=== PATIENT | male | born 1960 | race Asian ===

== ENCOUNTER 2017-03-11 07:10 | Day surgery (SDC) | payer MEDICAID ==
[~2017-03-11] VITALS: Ht 177.8 cm; Wt 94.3 kg
[~2017-03-11 07:10] MED LIST: COU5T PO; FOLI0.8T19 PO; FOLI1TAB16 PO; FURO40TA4 PO; GUAI10SY2 PO; METO5TAB85 PO; PANT40TA4 PO
[2017-03-11 07:28] VITALS: BP 112/63
[2017-03-11] MEDS ORDERED: albumin (human) 25% 100 ML IV solution IV PRN (07:40)
[2017-03-11] MEDS ORDERED: normal saline 1000ml 1,000 ML IV PRN (07:40)
[2017-03-11 08:40] VITALS: BP 101/65
[2017-03-11 08:45] VITALS: BP 103/60
[2017-03-11 09:01] VITALS: BP 100/60
== END 2017-03-11 09:17 | disposition home or self-care (01) ==
LOC: SSTAY O 07:10
PROVIDERS: ATTEND Radiology Diagnostic Radiology
DX: R18.8 Other ascites (principal); K76.89 Other specified diseases of liver; Z98.890 Other specified postprocedural states; Z88.6 Allergy status to analgesic agent; Z88.8 Allergy status to other drugs, medicaments and biological substances; Z91.018 Allergy to other foods; N18.6 End stage renal disease; Z99.2 Dependence on renal dialysis; Z95.2 Presence of prosthetic heart valve
CPT/HCPCS: 49083; A6257; J7030

== ENCOUNTER 2017-03-25 06:51 | Day surgery (SDC) | payer MEDICAID ==
[~2017-03-25] VITALS: Ht 177.8 cm; Wt 92.2 kg
[2017-03-25 07:15] VITALS: BP 115/64
[2017-03-25] MEDS ORDERED: albumin (human) 25% 100 ML IV solution IV PRN (07:15)
[2017-03-25] MEDS ORDERED: normal saline 1000ml 1,000 ML IV PRN (07:15)
[2017-03-25] MEDS ORDERED: LIDOcaine 1% 30ml vial SQ STA (07:34)
[2017-03-25 08:37] VITALS: BP 109/56
[2017-03-25 08:45] VITALS: BP 101/70
[2017-03-25 09:00] VITALS: BP 93/65
[2017-03-25 09:15] VITALS: BP 93/108
[2017-03-25 09:30] VITALS: BP 106/59
== END 2017-03-25 09:57 | disposition home or self-care (01) ==
LOC: SSTAY O 06:51
PROVIDERS: ATTEND Radiology Diagnostic Radiology
DX: R18.8 Other ascites (principal)
CPT/HCPCS: 49083; A6257; J3490; J7030

== ENCOUNTER 2017-04-07 06:58 | Day surgery (SDC) | payer MEDICAID ==
[~2017-04-07] VITALS: Ht 177.8 cm; Wt 96.6 kg
[2017-04-07 07:21] VITALS: BP 104/74
[2017-04-07] MEDS ORDERED: albumin (human) 25% 100 ML IV solution IV PRN (07:50)
[2017-04-07 08:19] VITALS: BP 111/77
[2017-04-07 08:30] VITALS: BP 119/64
[2017-04-07 08:45] VITALS: BP 129/69
[2017-04-07 09:00] VITALS: BP 120/65
== END 2017-04-07 09:15 | disposition home or self-care (01) ==
LOC: SSTAY O 06:58
PROVIDERS: ATTEND Radiology Vascular & Interventional Radiology
DX: R18.8 Other ascites (principal); Z86.718 Personal history of other venous thrombosis and embolism; I48.91 Unspecified atrial fibrillation; Z79.01 Long term (current) use of anticoagulants; N18.6 End stage renal disease; Z99.2 Dependence on renal dialysis; Z95.2 Presence of prosthetic heart valve; Z86.711 Personal history of pulmonary embolism; Z88.6 Allergy status to analgesic agent; Z91.018 Allergy to other foods
CPT/HCPCS: 49083; A6257

== ENCOUNTER 2017-04-23 07:11 | Day surgery (SDC) | payer MEDICAID ==
[2017-04-23] VITALS (10 sets, daily range): BP systolic 96–113; BP diastolic 52–71
[2017-04-23] MEDS ORDERED: albumin (human) 25% 100 ML IV solution IV PRN (07:25)
== END 2017-04-23 10:15 | disposition home or self-care (01) ==
LOC: SSTAY O 07:11
PROVIDERS: ATTEND Radiology Vascular & Interventional Radiology
DX: R18.8 Other ascites (principal); I48.91 Unspecified atrial fibrillation; N18.6 End stage renal disease; I50.9 Heart failure, unspecified; J44.9 Chronic obstructive pulmonary disease, unspecified; F32.9 Major depressive disorder, single episode, unspecified; M19.90 Unspecified osteoarthritis, unspecified site; Z79.01 Long term (current) use of anticoagulants; Z86.718 Personal history of other venous thrombosis and embolism; Z95.2 Presence of prosthetic heart valve; Z99.2 Dependence on renal dialysis; Z88.6 Allergy status to analgesic agent; Z88.8 Allergy status to other drugs, medicaments and biological substances; Z91.018 Allergy to other foods; Z86.73 Personal history of transient ischemic attack (TIA), and cerebral infarction without residual deficits; Z90.5 Acquired absence of kidney; Z86.74 Personal history of sudden cardiac arrest; Z79.899 Other long term (current) drug therapy
CPT/HCPCS: 49083; A6257; P9047

== ENCOUNTER 2017-05-12 06:20 | Day surgery (SDC) | payer MEDICAID ==
[~2017-05-12] VITALS: Ht 177.8 cm; Wt 98.2 kg
[2017-05-12] MEDS ORDERED: albumin (human) 25% 100 ML IV solution IV PRN (06:35)
[2017-05-12 06:40] VITALS: BP 103/64
[2017-05-12 08:13] VITALS: BP 121/77
[2017-05-12 08:14] VITALS: BP 121/77
[2017-05-12 08:30] VITALS: BP 108/67
[2017-05-12 08:45] VITALS: BP 107/66
[2017-05-12 09:00] VITALS: BP 110/64
== END 2017-05-12 09:05 | disposition home or self-care (01) ==
LOC: SSTAY O 06:20
PROVIDERS: ATTEND Radiology Diagnostic Radiology
DX: R18.8 Other ascites (principal); I48.91 Unspecified atrial fibrillation; N18.6 End stage renal disease; G47.33 Obstructive sleep apnea (adult) (pediatric); M19.90 Unspecified osteoarthritis, unspecified site; F32.9 Major depressive disorder, single episode, unspecified; B19.20 Unspecified viral hepatitis C without hepatic coma; Z72.89 Other problems related to lifestyle; Z87.11 Personal history of peptic ulcer disease; Z90.49 Acquired absence of other specified parts of digestive tract; Z90.5 Acquired absence of kidney; Z95.2 Presence of prosthetic heart valve; Z99.2 Dependence on renal dialysis; Z98.890 Other specified postprocedural states; Z88.6 Allergy status to analgesic agent; Z88.8 Allergy status to other drugs, medicaments and biological substances; Z91.018 Allergy to other foods; Z79.01 Long term (current) use of anticoagulants; Z86.73 Personal history of transient ischemic attack (TIA), and cerebral infarction without residual deficits; Z86.718 Personal history of other venous thrombosis and embolism
CPT/HCPCS: 49083; A6257